=== PATIENT | female | born 1955 | race African-American/Black ===

== ENCOUNTER 2019-01-29 10:42 | Emergency (ER) | payer OTHER ==
[~2019-01-29] VITALS: Ht 157.5 cm; Wt 72.1 kg
[2019-01-29] MEDS ORDERED: FAMOTIDINE 20 MG/2 ML VIAL IV STA (11:06)
[2019-01-29] MEDS ORDERED: MAGNESIUM/ALUMINUM/SIMETHICONE 30 ML UDC PO ONE (11:15)
[2019-01-29] MEDS ORDERED: MECLIZINE HCL 12.5 MG TAB PO ONE (11:15)
[2019-01-29] MEDS ORDERED: SUCRALFATE 1 GM/10 ML SUSP NG ONE (11:15)
[2019-01-29] MEDS ORDERED: METOCLOPRAMIDE HCL 10 MG/2ML VIAL IV ONE (11:15)
[2019-01-29 12:38] LABS: BASOPHILS # (AUTO) 0.1 (0.0-0.1); BASOPHILS % 0.7 % (0.0-1.0); EOSINOPHILS # (AUTO) 0.1 (0.0-0.4); EOSINOPHILS % 0.7 % (0.0-6.0); HEMATOCRIT 40.9 % (34.2-44.1); HEMOGLOBIN 13.5 g/dL (12.0-16.0); LYMPHOCYTES # (AUTO) 1.7 (1.0-3.2); LYMPHOCYTES % 15.4 % (18.0-39.1); MEAN CORPUSCULAR HEMOGLOBIN 26.4 pg (28-32); MEAN CORPUSCULAR VOLUME 79.9 fL (81-99); MONOCYTES # (AUTO) 0.7 (0.2-0.8); MONOCYTES % 6.2 % (4.4-11.3); NEUTROPHILS # (AUTO) 8.2 (2.1-6.9); NEUTROPHILS % 76.6 % (38.7-80.0); PLATELET COUNT 367 x10e3/uL (140-360); RED BLOOD COUNT 5.12 x10e6/uL (3.6-5.1); RED CELL DISTRIBUTION WIDTH 15.7 % (11.7-14.4)
--- NOTE | 2019-01-29 12:38 | Diagnostic Imaging Report ---
Exam: KUB-2 views Clinical History: Epigastric pain. Comparison: None. Findings: The right upper abdomen is partially excluded from the field of view. Nonobstructive bowel gas pattern. Moderate amount of stools in the proximal colon. No calculations project over the kidneys bilaterally. There are two 6 mm calcifications projecting adjacent to the left L2 and L3 transverse processes. Phleboliths project over the lower pelvis. Status post cholecystectomy. Impression: Two 6 mm calcifications project adjacent to the left L2 and L3 transverse processes. These may represent vascular or ureteral calcifications. Suggest clinical correlation for urinary stone. Signed by: Dr. Sofia Parra MD on 01/29/2019 12:35 PM
[2019-01-29 12:55] LABS: ALANINE AMINOTRANSFERASE 16 IU/L (0-55); ALBUMIN 3.4 g/dL (3.5-5.0); ALBUMIN/GLOBULIN RATIO 0.8 (0.8-2.0); ALKALINE PHOSPHATASE 134 IU/L (40-150); ANION GAP 12.7 mmol/L (8-16); BLOOD UREA NITROGEN 13 mg/dL (7-26); BUN/CREATININE RATIO 14 (6-25); CALCIUM 10.1 mg/dL (8.4-10.2); CARBON DIOXIDE 27 mmol/L (22-29); CHLORIDE 105 mmol/L (98-107); CREATININE, SERUM 0.94 mg/dL (0.57-1.11); EST GLOMERULAR FILTRATION RATE > 60 ML/MIN (60-); GLUCOSE 165 mg/dL (74-118); LIPASE 21 U/L (8-78); POTASSIUM 4.7 mmol/L (3.5-5.1); SODIUM 140 mmol/L (136-145)
[2019-01-29] MEDS ORDERED: LACTULOSE SYRUP 20 GM/30 ML UDC PO ONE (13:45)
[2019-01-29 14:07] VITALS: BP 117/74
== END 2019-01-29 14:20 | disposition home or self-care (01) ==
LOC: ER 10:42
DX: R11.2 Nausea with vomiting, unspecified (principal); R10.13 Epigastric pain; R42 Dizziness and giddiness; K59.00 Constipation, unspecified; I10 Essential (primary) hypertension; K21.9 Gastro-esophageal reflux disease without esophagitis
CPT/HCPCS: 36415; 74018; 80053; 83690; 84484; 85025; 99284; J2765; J8597

== ENCOUNTER 2019-03-19 14:47 | Emergency (ER) | payer OTHER ==
[~2019-03-19] VITALS: Ht 157.5 cm; Wt 72.1 kg
--- OUTSIDE RECORDS SUMMARY | 2019-03-19 14:50 | XMS REPORT ---
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 Allergies, Adverse Reactions, Alerts This patient has no known allergies or adverse reactions. Medications This patient has no known medications. Results Test Description Test Time Test Comments Text Results Atomic Results Result Comments ABDOMEN-1VIEW ([facility]) 2019-01-29 12:30:00 [place] [address] Patient Name: TIFFANIE LOMELI MR #: [id number] : 1955 Age/Sex: 63/F Req #: [id number] Adm Physician: Ordered by: ADRIEL MORALES MD Report #: [id number] Location: ER Room/Bed: Procedure: [id number] DX/ABDOMEN-1VIEW ([facility]) Exam Date: 01/29/19 Exam Time: 1120 REPORT STATUS: Signed Exam: KUB-2 views Clinical History: Epigastric pain. Comparison: None. Findings: The right upper abdomen is partially excluded from the field of view. Nonobstructive bowel gas pattern. Moderate amount of stools in the proximal colon. No calculations project over the kidneys bilaterally. There are two 6 mm calcifications projecting adjacent to the left L2 and L3 transverse processes. Phleboliths project over the lower pelvis. Status post cholecystectomy. Impression: Two 6 mm calcifications project adjacent to the left L2 and L3 transverse processes. These may represent vascular or ureteral calcifications. Suggest clinical correlation for urinary stone. Signed by: Dr. Rebekah Wills MD on 01/29/2019 12:35 PM Dictated By: REBEKAH WILLS MD [id number] Transcribed By: ALECIA on 01/29/19 1235 COPY TO: ADRIEL MORALES MD
--- NOTE | 2019-03-19 15:05 | NUR ---
PATIENT IN TREATMENT ROOM, EVALUATED BY DR. KAY
--- NOTE | 2019-03-19 15:36 | Diagnostic Imaging Report ---
Exam: Left elbow radiographs-3 views History: Status post fall with elbow pain. Comparison: None. Findings: No evidence of acute fracture, malalignment, or soft tissue abnormality. No evidence of elbow joint effusion. Impression: No acute radiographic abnormality. Signed by: Dr. Sofia Parra MD on 03/19/2019 3:33 PM
== END 2019-03-19 16:04 | disposition home or self-care (01) ==
LOC: ER 14:47
DX: S50.02XA Contusion of left elbow, initial encounter (principal); W01.0XXA Fall on same level from slipping, tripping and stumbling without subsequent striking against object, initial encounter; Y92.008 Other place in unspecified non-institutional (private) residence as the place of occurrence of the external cause; I10 Essential (primary) hypertension; E11.9 Type 2 diabetes mellitus without complications; E78.5 Hyperlipidemia, unspecified; R05 Cough
CPT/HCPCS: 99283

== ENCOUNTER 2019-04-19 22:10 | Emergency (ER) | payer OTHER ==
[~2019-04-19] VITALS: Ht 157.5 cm; Wt 72.1 kg
--- NOTE | 2019-04-19 23:15 | Diagnostic Imaging Report ---
Bilateral knee - 3 view(s) each HISTORY: Pain COMPARISON: None available. FINDINGS: See impression. IMPRESSION: No evidence of acute fracture or dislocation. Bilateral degenerative changes, most notable in the medial and patellofemoral compartments. Signed by: Dr. Levar Cook MD on 04/19/2019 11:12 PM
--- NOTE | 2019-04-19 23:17 | Diagnostic Imaging Report ---
HUMERUS LEFT 2+VIEWS - 2 views HISTORY: Pain COMPARISON: None available. FINDINGS: Bones: No acute displaced fracture. Osseous alignment is within normal limits. Joints: The joint spaces are well-maintained. Soft tissues: The soft tissues appear unremarkable. IMPRESSION: No acute radiographic abnormality. Signed by: Dr. Levar Cook MD on 04/19/2019 11:14 PM
== END 2019-04-19 23:45 | disposition home or self-care (01) ==
LOC: ER 22:10
DX: M25.562 Pain in left knee (principal); M25.561 Pain in right knee; S83.412A Sprain of medial collateral ligament of left knee, initial encounter; S83.411A Sprain of medial collateral ligament of right knee, initial encounter; W01.0XXA Fall on same level from slipping, tripping and stumbling without subsequent striking against object, initial encounter; Y92.238 Other place in hospital as the place of occurrence of the external cause; F17.210 Nicotine dependence, cigarettes, uncomplicated
CPT/HCPCS: 99283